=== PATIENT | male | born 1965 | race Caucasian/White ===

== ENCOUNTER 2024-11-04 09:50 | Emergency (ER) | payer OTHER, SELFPAY ==
--- NOTE | 2024-11-04 09:52 | ED_ITS ---
HPI - URI/Sore Throat General Chief Complaint: Upper Respiratory Infection Stated Complaint: sinus infection Time Seen by Provider: 11/04/24 09:52 Source: patient Mode of arrival: ambulatory Limitations: no limitations History of Present Illness HPI Narrative: Pranay is a 58-year-old male patient presenting to the clinic today with complaints of a possible sinus infection. He reports he has had nasal congestion and cough x2 days. States he is coughing up some green phlegm. Denies any fevers, chills, body aches. States he had a slight sore throat last night but drank something and this helped the pain. He has not taken any medications to treat his symptoms. 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 No chest pain or shortness of breath. Related Data Home Medications ?Medication ?Instructions ?Recorded ?Confirmed ?Last Taken ?Type lisinopril 5 mg tablet 2.5 mg PO DAILY 11/04/24 Unknown History montelukast 10 mg tablet 10 mg PO DAILY 11/04/24 Unknown History (Singulair) Allergies Allergy/AdvReac Type Severity Reaction Status Date / Time Penicillins AdvReac Mild Other Verified 11/04/24 10:03 Review of Systems Review of Systems: Pertinent positives per HPI. Patient denies any fever, chills, rash, headache, visual changes, dizziness, shortness of breath, chest pain, palpitations, nausea, vomiting, diarrhea, constipation, abdominal pain, or any urinary issues. PMFSH Comments At the time of my signature, I reviewed and agree with the nursing past medical, surgical, social, and family history. There is no relevant family history pertinent to the patient complaint. Exam Narrative: General: Well-developed, well nourished, in no apparent distress Head: Normocephalic, atraumatic Eyes: Pupils equally round and reactive to light bilaterally, EOM intact, sclera and conjunctive clear, no discharge, lids normal Ears: TMs intact and clear, ear canals clear, no drainage, grossly hearing normal. Nose: Nares patent, clear nasal discharge, mild inflammation, no sinus tenderness. Mouth: Oral pharynx without lesions or masses, good dentition, MMM. Neck: Supple, trachea midline, no enlargement of anterior or posterior cervical nodes, no thyroid masses or goiter palpable. Cardio: Regular rate and rhythm, s1 and s2 normal, no murmur appreciated. Resp: Clear to auscultation bilaterally, no rhonchi, rales, wheezing or rubs Course Course Emergency Course: Portions of this record may have been created with voice recognition software. Level of Care: Express Care Visit Vital Signs Vital signs: Vital Signs Temperature 36.6 C 11/04/24 10:02 Pulse Rate 81 11/04/24 10:02 Respiratory Rate 18 11/04/24 10:02 Blood Pressure 136/79 11/04/24 10:02 Pulse Oximetry 98 11/04/24 10:02 Oxygen Delivery Room Air 11/04/24 10:02 Temperature 36.6 C 11/04/24 10:02 Pulse Rate 81 11/04/24 10:02 Respiratory Rate 18 11/04/24 10:02 Blood Pressure 136/79 11/04/24 10:02 Pulse Oximetry 98 11/04/24 10:02 Oxygen Delivery Room Air 11/04/24 10:02 Vital signs reviewed MDM - URI/Sore Throat MDM Narrative Medical decision making narrative: At the time of visit patient is resting comfortably on the exam table. Patient appears to be nontoxic. Offered COVID and influenza testing and patient declined Plan: I suspect patient has URI. Lung sounds are clear and there is no sign of bacterial infection in the clinic today. Patient has not taken any hdaw-aek-uakekhq medications to treat his symptoms. Recommend Coricidin HBP, Flonase, and xqag-fja-jljeuki antihistamines such as Zyrtec or Claritin. Patient is upset that he is not getting a prescription of antibiotics. States that this will only get worse. Explained to the patient that he does not have any signs of a bacterial infection and this appears to be more likely viral in nature. Patient verbally upset. Supportive measures were discussed with the patient and they voiced understanding discharge instructions and agrees to treatment plan. Return precautions reviewed Differential Diagnosis Differential diagnosis: Likely upper respiratory infection, otitis media, sinusitis, viral infection, bronchitis, influenza, pharyngitis and other (COVID) Discharge Plan Discharge Clinical Impression: Upper respiratory infection Qualifiers: URI type: unspecified URI Qualified Code(s): J06.9 - Acute upper respiratory infection, unspecified Patient Disposition: Home Condition: Stable Instructions: Antibiotic Form, Cold Symptoms (ED) Additional Instructions: You declined COVID and influenza testing in the clinic today. May take Coricidin HBP for cold/flu symptoms Increase fluids and stay well hydrated Tylenol/motrin for pain/fever Flonase and OTC antihistamines such as Zyrtec or Claritin as directed Vicks vapor rub to open sinuses Sinus rinses for congestion Cepacol spray, cough drops, throat lozenges, warm tea with honey/lemon, gargle salt water to soothe throat BRAT diet for diarrhea Clear liquids x 24 hours then advance as tolerated for nausea/vomiting Go to the ED if you develop a worsening in your condition- high fever not controlled by Tylenol or Motrin, dehydration, weakness, lethargy, shortness of breath, or chest pain. Follow up with your PCP in 3-5 days if symptoms persist. Patient Language: Syriac Prescriptions: No Action lisinopril 5 mg tablet 2.5 mg PO DAILY montelukast [Singulair] 10 mg tablet 10 mg PO DAILY Follow-up/Referrals: UNKNOWN,DOCTOR [Non-Staff] - Time of Disposition: 10:09 Quality NIHSS Nursing Documentation ED NIHSS nursing documentation: reviewed/agree
--- OUTSIDE RECORDS SUMMARY | 2024-11-04 09:59 | XMS_ITS | Patient Health Record ---
Author Organization [facility], Address [address] [place] [phone] Support Name Relationship Address Phone Roberto Underwood Emergency Contact Unknown Pranay Underwood Guarantor Unknown [phone] Allergies Allergen (clinical drug ingredient) Drug/Non Drug Allergy documented on EMR Reaction Allergy Type Onset Date Status codeine Codeine Sulfate nausea and vomiting Drug Allergy Active Reason For Referral No Information Plan Of Treatment No Information Insurance Providers Payer Name Payer Address Payer Phone Subscriber Number Group Number Insured Name Patient Relationship to Insured Coverage Start Date Coverage End Date [employer] [address] [address] [place] [address] [id number] Prnaay Underwood Self - patient is the insured Medical (General) History Surgical History Surgery Date(Month/Year) staph infection on left buttock 10/2012
--- OUTSIDE RECORDS SUMMARY | 2024-11-04 09:59 | XMS_ITS ---
Author Organization Unknown Address [address] [place] [phone] Phone Care Team Providers Care Multimedia Services Coordinator Name Role Phone ANTONIO GARDINER BAILEE Attending Unavailable Results COVID-19 FLU A & B RAPID FLORES T - Collect Date/Time: 07/10/2024 11:05 [facility] ID: [id number] [address] [place], [address] LOINC: 26974-6 Test Value Unit Reference Range Code Code System Flag COVID-19 RAPID TEST NEGATIVE NORMAL: NEGATIVE 64167-9 LO INC INFLUENZA A NEGATIVE NORMAL: NEGATIVE 84644-5 LOINC INFLUENZA B NEGATIVE NORMAL: NEGATIVE 10939-8 LOINC XR CHEST 2V - Completed: 01/2025 11:12 LOINC: PA and lateral chest: Findings: Heart is normal in size. Pulmonary vascularity is unremarkable and the lungs are clear. An old rib fracture is noted on the left. Opinion: No active chest disease. Electronically Reviewed and Signed By Reilly Carrillo MD 07/10/24 17:01 Dictating Initials: SRINIVASAN Dictation Date: 07/10/2024 Transcribe Date: 07/10/2024 Transcribe Initials: ROYCE Copy for: ANTONIO GARDINER BAILEE via fax Social History Type Status Start Date End Date Code Code Syst em Smoking History Current every day smoker [id number] SNOMED CT Sex Male Hospital Discharge Instructions Should you have any questions prior to discharge, please contact a member of your healthcare team. If you have left the hospital and have any questions, please contact your primary care physician. Reason For Referral No Data Found Plan of Treatment No Data Found Encounters Encounter Diagnosis Start Date Code Code Sys tem Nasal congestion 07/10/2024 [id number] SNOMED-CT Personal Care Team Section Imaging Narrative Notes [facility] 07/10/2024 17:01 [facility] Pt. Name: ARTEMIO Nance Nancy Crane B: 1965 Age: 58 Sex: M MR#: [id number] Pt #: [id number] Loc: [facility] Ordering Physician: ANTONIO CHATTERJEE XR CHEST 2V [id number] COMPLETE:07/10/24 11:12 ANDREAS 103 (REASON FOR CHEST: CONGESTION, COVID, FLU PA and lateral chest: Findings: Heart is normal in size. Pulmonary vascularity is unremarkable and the lungs are clear. An old rib fracture is noted on the left. Opinion: No active chest disease. Electronically Reviewed and Signed By [employer] SIGNDATE Dictating Initials: SRINIVASAN Dictation Date: 07/10/2024 Transcribe Date: 07/10/2024 Transcribe Initials: ROYCE Copy for: ANTONIO MOROCHO via fax [address] [place] [address] - - [email or web address]
[2024-11-04 10:02] VITALS: BP 136/79; PULSE 81; RESP 18; TEMP 36.6; O2SAT 98
--- NOTE | 2024-11-04 10:07 | PC.NURSE ---
1006- pt cannot tell us medications, states should be in computer even though he has never been here and [place] state. pt advised to take otc coricidan hbp per PROCEDURES TECH and stated he will not be taking that, was upset he was not getting an abx.
== END 2024-11-04 10:11 | disposition home or self-care (01) ==
PROVIDERS: Emergency Provider Nurse Practitioner Family
DX: J06.9 Acute upper respiratory infection, unspecified (principal); I10 Essential (primary) hypertension
CPT/HCPCS: 99202; G0463